=== PATIENT | female | born 1975 | race Two or more races ===

== ENCOUNTER 2017-05-16 13:47 | Inpatient (IN) | payer OTHER ==
[~2017-05-16] VITALS: Ht 160 cm; Wt 95.3 kg
== END 2017-05-22 13:48 | DRG 583 ==
LOC: O/R 05-21 05:25 → SURG 05-21 10:30 → OB/GYN 05-21 19:32
PROVIDERS: Plastic Surgery; Surgery
PROC: 0HRV07Z Replacement of Bilateral Breast with Autologous Tissue Substitute, Open Approach (ICD-10-PCS; principal; 2017-05-21 10:30)
PROC: 0HRV0JZ Replacement of Bilateral Breast with Synthetic Substitute, Open Approach (ICD-10-PCS; 2017-05-21 10:30)
DX: C50.911 Malignant neoplasm of unspecified site of right female breast (principal); C50.411 Malignant neoplasm of upper-outer quadrant of right female breast; Z85.3 Personal history of malignant neoplasm of breast; Z90.13 Acquired absence of bilateral breasts and nipples

== ENCOUNTER 2017-05-17 08:57 | Outpatient (CLI) | payer OTHER | END 2017-05-17 09:06 | disposition home or self-care (01) | LOC: LAB 08:57 | DX: C50.411 Malignant neoplasm of upper-outer quadrant of right female breast (principal); Z00.01 Encounter for general adult medical examination with abnormal findings; Z51.11 Encounter for antineoplastic chemotherapy; Z01.818 Encounter for other preprocedural examination ==

== ENCOUNTER 2019-01-13 08:00 | Inpatient (IN) | payer OTHER ==
[~2019-01-13] VITALS: Ht 162.6 cm; Wt 83.9 kg
[2019-01-16] MEDS ORDERED: BACTRIM DS TAB1 EACH (08:09)
[2019-01-16] MEDS ORDERED: OXYC1TAB9 (08:09)
== END 2019-01-18 10:17 | disposition home or self-care (01) | DRG 742 ==
LOC: ADM 08:15 → EDSTATUS 08:15 → O/R 01-16 05:15 → SURG 01-16 05:15 → SURH 01-16 07:00 → SURG 01-16 16:48
PROVIDERS: Obstetrics & Gynecology Gynecologic Oncology; Plastic Surgery; ADMIT Surgery
PROC: 0WUF0JZ Supplement Abdominal Wall with Synthetic Substitute, Open Approach (ICD-10-PCS; 2019-01-16)
PROC: 0DNW0ZZ Release Peritoneum, Open Approach (ICD-10-PCS; 2019-01-16)
PROC: 0JB80ZZ Excision of Abdomen Subcutaneous Tissue and Fascia, Open Approach (ICD-10-PCS; 2019-01-16)
PROC: 0UT90ZZ Resection of Uterus, Open Approach (ICD-10-PCS; principal; 2019-01-16 11:15)
PROC: 0UT70ZZ Resection of Bilateral Fallopian Tubes, Open Approach (ICD-10-PCS; 2019-01-16 11:15)
PROC: 0UT20ZZ Resection of Bilateral Ovaries, Open Approach (ICD-10-PCS; 2019-01-16 11:15)
DX: D26.1 Other benign neoplasm of corpus uteri (principal); K43.0 Incisional hernia with obstruction, without gangrene; K42.0 Umbilical hernia with obstruction, without gangrene; N72 Inflammatory disease of cervix uteri; N83.12 Corpus luteum cyst of left ovary; D28.2 Benign neoplasm of uterine tubes and ligaments; M62.08 Separation of muscle (nontraumatic), other site; K66.0 Peritoneal adhesions (postprocedural) (postinfection); E65 Localized adiposity

== ENCOUNTER 2019-10-23 06:41 | Outpatient (CLI) | payer OTHER ==
[~2019-10-23 06:41] MED LIST: BACTRIM DS TAB1 EACH; OXYC1TAB9
== END 2019-10-24 09:52 | disposition home or self-care (01) ==
LOC: LAB 06:41
PROVIDERS: ATTEND Plastic Surgery
DX: Z03.818 Encounter for observation for suspected exposure to other biological agents ruled out (principal); Z11.59 Encounter for screening for other viral diseases; C50.911 Malignant neoplasm of unspecified site of right female breast

== ENCOUNTER 2019-10-27 05:59 | Day surgery (SDC) | payer OTHER | END 2019-10-27 17:45 | disposition home or self-care (01) | LOC: CIR.AMB 05:59 | PROVIDERS: ATTEND Plastic Surgery | DX: N65.1 Disproportion of reconstructed breast (principal); Z90.13 Acquired absence of bilateral breasts and nipples ==